=== PATIENT | female | born 1940 ===

== ENCOUNTER 2018-01-20 05:56 | Inpatient (IN) | payer MEDICARE, MEDICAID ==
[2018-01-20 06:16] VITALS: BMI 30.8
[2018-01-20] MEDS ORDERED: Propofol 10 mg/ml Inj (20 ML) ONE (07:28)
[2018-01-20] MEDS ORDERED: Rocuronium 10 mg/ml (5 ml) ONE (07:30)
[2018-01-20] MEDS ORDERED: Sodium Chloride 0.9% 60 ML IV ONE (07:40)
[2018-01-20] MEDS ORDERED: ceFAZolin IV 1 gm in Dextrose 0 GM/0 ML BAG IVPB ONE (07:41)
[2018-01-20] MEDS ORDERED: Vancomycin 1 g Inj ONE (07:41)
[2018-01-20] MEDS ORDERED: Bupivacaine Liposomal Inj 20 ml INFIL ONE (07:42)
[2018-01-20] MEDS ORDERED: Succinylcholine Chloride 20 mg/ml Syr (5 ml) IV ONE (07:45)
--- NOTE | 2018-01-20 07:48 | CP.PCM.HP ---
History of Present Illness - History of Present Illness History of Present Illness: 77 F failed conservative management, elected for a left total knee replacement. no hx, bleeding or blood clots, AL or stents Allergy to penicillin Present on Admission - Present on Admission Any Indicators Present on Admission: No History of DVT/PE: No Review of Systems - Musculoskeletal Musculoskeletal: Joint Swelling, Stiffness Past Patient History - Past Medical History & Family History Past Medical History?: Yes - Past Social History Smoking Status: Never Smoked - HEENT Hx HEENT Problems: Yes Hx Cataracts: Yes - MUSCULOSKELETAL/RHEUMATOLOGICAL Hx Musculoskeletal Disorders: Yes Hx Degenerative Joint Disease: Yes Hx Osteoarthritis: Yes - GASTROINTESTINAL Hx Gastrointestinal Disorders: Yes Hx Bowel Surgery: Yes Hx Gall Bladder Disease: Yes Hx Gastroesophageal Reflux: Yes - SURGICAL HISTORY Hx Surgeries: Yes Hx Cholecystectomy: Yes - ANESTHESIA Hx Anesthesia: Yes Hx Anesthesia Reactions: No Hx Malignant Hyperthermia: No Has any member of the family had a problem w/ anesthesia?: No Meds Allergies/Adverse Reactions: Allergies Allergy/AdvReac Type Severity Reaction Status Date / Time Penicillins Allergy RASH Verified 12/31/17 10:07 Physical Exam - Constitutional Appears: Well, No Acute Distress - Head Exam Head Exam: ATRAUMATIC, NORMAL INSPECTION, NORMOCEPHALIC - Neck Exam Neck exam: Positive for: Full Rom, Normal Inspection Additional comments: no masses - Respiratory Exam Respiratory Exam: NORMAL BREATHING PATTERN - Cardiovascular Exam Cardiovascular Exam: RRR - Extremities Exam Additional comments: calf soft nontender. NVI distally - Expanded Lower Extremities Exam Left Knee exam: tenderness - Neurological Exam Neurological exam: Alert, Normal Gait, Oriented x3 - Psychiatric Exam Psychiatric exam: Normal Affect, Normal Mood - Skin Skin Exam: Dry, Intact, Normal Color, Warm Results - Vital Signs Recent Vital Signs: Last Vital Signs Temp 97.8 F 01/20/18 06:20 Pulse 74 01/20/18 06:20 Resp 20 01/20/18 06:20 BP 153/83 H 01/20/18 06:20 Pulse Ox 98 01/20/18 06:20 Assessment & Plan (1) Osteoarthritis of left knee Status: Acute (2) Hypothyroid Status: Chronic - Assessment and Plan (Free Text) Assessment: Left total knee replacement Type and screen NPO Labs reviewed Patient medically optimized for a left total knee replacement Medical H&P and cardiac clearance on chart
[2018-01-20] MEDS ORDERED: Morphine 4 MG/ML VIAL IVP PRN (07:49)
[2018-01-20] MEDS ORDERED: Oxycodone/Acetaminophen 5/325 mg Tab PO PRN (07:49)
[2018-01-20] MEDS ORDERED: Phenylephrine 10 mg/ml Inj ONE (07:53)
[2018-01-20] MEDS ORDERED: Clindamycin 600mg/50ml NS 1,200 MG/100 ML BAG IVPB ONE (07:55)
[2018-01-20] MEDS ORDERED: Tranexamic Acid 1,000 MG in Sodium Chloride 0.9% 50 ML IV SCH (08:15)
[2018-01-20] MEDS: Bacitracin 150,000 UNIT in Sodium Chloride 0.9% Irrig 3,000 ML IR SCH ×2 (08:30→09:30)
[2018-01-20] MEDS ORDERED: ePHEDrine 50 mg/ml Inj ONE (08:35)
[2018-01-20] MEDS ORDERED: Neostigmine Methylsulfate 3mg/3ml Syringe IV ONE (09:51)
[2018-01-20] MEDS ORDERED: HYDROmorphone 0.5 mg/0.5 ml ISec IVP PRN (11:09)
--- NOTE | 2018-01-20 11:19 | PCM.SURG1 ---
Surgeon's Initial Post Op Note - Surgeon's Notes Surgeon: Kimi Umana MD Floor Broker: Debi Khanna PA-C, Adal Bruce PA-C Type of Anesthesia: General Endo Anesthesia Administered By: Dr. Carrington Pre-Operative Diagnosis: left knee osteoarthritis Operative Findings: see full note. 83 min for tourniqet at 300mmhg Post-Operative Diagnosis: same Operation Performed: Left total knee arthroplasty Specimen/Specimens Removed: none Estimated Blood Loss: EBL {In ML}: 100 Blood Products Given: N/A Drains Used: Hemovac Post-Op Condition: Fair Date of Surgery/Procedure: 01/20/18 Time of Surgery/Procedure: 08:30
--- NOTE | 2018-01-20 12:06 | RAD ---
PROCEDURE: Left Knee Radiographs. HISTORY: Pain. COMPARISON: None. FINDINGS: BONES: Bone alignment and mineralization are normal. There is no acute displaced fracture or bone destruction. There is an os ossific density medial to the medial femoral condyles which may represent ligament/ soft tissue calcification. JOINTS: Status post total cemented knee arthroplasty. No evidence of acute complications. JOINT EFFUSION: None. OTHER FINDINGS: Postsurgical changes in the periarticular soft tissues with soft tissue emphysema. A surgical drain overlies the knee joint. Anterior skin kimberley are identified. IMPRESSION: Status post total cemented knee arthroplasty, expected postsurgical changes in the periarticular soft tissues without evidence for acute complications.
[2018-01-20] MEDS ORDERED: Lactated Ringer's 1,000 ML IV ONE (13:00)
[2018-01-20] MEDS ORDERED: Bupivacaine 0.25% Inj(30mL) ONE (13:30)
--- NOTE | 2018-01-20 13:56 | PCM.ANESB7 ---
Adductor Canal Block - Adductor Canal Block Procedure Performed: Adductor Canal Block Left - Procedure Adductor Canal Block: The procedure was explained to the patient that it is for the post-operative pain management. Consent was obtained after a thorough discussion with the patient regarding the benefits and possible complications of local anesthetic adductor canal block of the femoral nerve. Standard monitors, as defined by the ASA, were applied to the patient. Time-out was held with the circulating nurse to confirm the appropriate block. After applying supplemental oxygen and administering IV Sedation as needed, the patient was placed in supine position with and the operative leg was flexed slightly at the knee and externally rotated as needed, and was kept anatomically stable. The mid-thigh of the LEFT lower extremity was exposed. The ultrasound transducer was then applied transversely along the medial aspect, about midway down the thigh and the femoral artery and vein were identified in appropriate relation with the sartorius muscle. At this time, the femoral nerve was visualized lateral to the femoral artery within the canal. After thorough identification, this area area was prepped with Chloroprep solution three times and 1 % Lidocaine was injected subcutaneously for topical anesthesia. At this point, a #22 gauge Stimuplex 4-inch needle was inserted in-plane in a [id number] orientation, and advanced toward the saphenous nerve. Advancement was performed carefully under direct ultrasound visualization. After negative aspiration, _10cc of _0.25% bupivicaine_was injected and this was followed with _10cc of _0.25% bupivicaine. Under ultrasound guidance the local anesthetics were observed spreading around the saphenous nerve. The needle was removed intact and sterile dressing was applied. The patient had stable vital signs, was conscious and in no apparent distress. The patient tolerated the adductor canal block well with stable vital signs, no complaints, no sequelae.
[2018-01-20] MEDS: Clindamycin 600mg/50ml NS 600 MG/50 ML BAG IVPB SCH (15:51)
[2018-01-20] MEDS: Sodium Chloride 0.9% 1,000 ML IV SCH ×2 (18:42→19:33)
--- NOTE | 2018-01-20 22:31 | OP ---
PROCEDURE DATE: 01/20/2018 PREOPERATIVE DIAGNOSIS: Left knee osteoarthritis. POSTOPERATIVE DIAGNOSIS: Left knee osteoarthritis. PROCEDURE: Left total knee arthroplasty. SURGEON: Alfredo Umana MD UNDERGROUND HEAVY EQUIPMENT OPERATOR: Dr. Umana assisted by , the physician shipping assistant, and Adal Bruce, the physician shipping assistant, both physician assistants were scrubbed and present throughout the entire case and assisted in patient positioning, retraction, and wound closure. TYPE OF ANESTHESIA: General. COMPLICATIONS: None. ESTIMATED BLOOD LOSS: 100 mL. INDICATIONS FOR PROCEDURE: This is a 77-year-old female who presented with complaints of long-standing left knee pain. Clinical examination is consistent with significant medial joint line tenderness to palpation and pain with axial load. Radiographic examination is consistent with advanced degenerative joint disease of the left knee. After a period of failed nonsurgical management, recommendation was for a left total knee arthroplasty. The risks, benefits, and alternatives of the procedure were discussed with the patient and informed consent was obtained. DESCRIPTION OF PROCEDURE: After surgical site was finally verified in the preoperative holding area, patient was taken to the operating room and placed supine on the operating room table. After administration of general anesthesia, patient received 900 mg of clindamycin IV. A Gonzalez catheter was inserted. Venodyne boot was placed on nonoperative extremity. Tourniquet was placed on the left thigh. Care was taken to make sure that all bony prominences and nerves were well padded and protected, and the left lower extremity was prepped and draped in the usual sterile fashion. The left lower extremity was exsanguinated and the tourniquet was inflated. Approximately 10 cm longitudinal midline incision was made. Soft tissues were dissected sharply down to the knee joint. Medial parapatellar arthrotomy was performed. Medial and lateral menisci of the anterior fat pad, ACL and PCL were all resected. Once the knee joint was adequately exposed, the step drill was used to drill into the medullary canal of distal femur. Intramedullary distal femoral cutting guide was inserted. Distal femoral resection was performed. Next, a femoral component was sized and a 4-in-1 cut block was pinned into place. Anterior and posterior cuts were performed, and the box cut was then done on the femur. Next, our attention was directed to the tibia. Extramedullary tibia guide was inserted and satisfied with our alignment. Guide was pinned into place. Tibial resection was performed, and the flexion and extension gaps were checked. After a medial soft tissue release, the patient was noted to be well balanced with full extension and flexion. At this point, tibial component was sized and the medullary canal of the proximal tibia was reamed and punched with a cruciate punch. With a trial tibia in place, a trial femur was placed, and trial bearing was inserted. The knee was taken through range of motion, was noted to have full extension and flexion and stable with varus and valgus stress. Attention was directed to the patella. The thickness of patella was measured and the patella resection was performed. The patellar button was sized and the holes for patella button were then drilled. The trial patella was inserted. The knee was taken through a range of motion, and the patella was noted to have some mild lateral tilt which was corrected by performing a lateral retinacular release. At this point, the trial components were removed, and the knee joint was pulse lavaged with antibiotic saline solution. The bony surfaces were dried, and the actual tibial, femoral, and patellar components were cemented into place. Care was taken to remove all excess cement. Once the cement was hardened, the wound was inspected for any debris and again pulse lavaged. The actual bearing was inserted and locked into place with a cross pin. The tourniquet was deflated and any obvious bleeding was cauterized. A medium Hemovac drain was inserted and arthrotomy was closed using #1 Vicryl suture, subcutaneous tissue was closed using 0-Vicryl and 2-0 Vicryl suture, and the skin was closed using kimberley. Sterile dressing was applied. The patient was awakened from the procedure and taken to the recovery room in stable condition. Alfredo Umana MD
[2018-01-21] MEDS: Clindamycin 600mg/50ml NS 600 MG/50 ML BAG IVPB SCH (00:04)
[2018-01-21 01:25] VITALS: RESP 20
[2018-01-21] MEDS: Sodium Chloride 0.9% 1,000 ML IV SCH ×2 (06:35→08:53)
[2018-01-21 07:20] LABS: MEAN CELL VOLUME 92.6 fL (81.0-99.0); RBC 3.17 Mil/uL (3.80-5.20); RED CELL DISTRIBUTION WIDTH 12.5 % (11.5-14.5)
[2018-01-21 07:32] LABS: MEAN CORPUSCULAR HEMOGLOBIN 33.8 pg (27.0-31.0); MEAN CORPUSCULAR HGB CONC 36.6 g/dL (33.0-37.0); MEAN PLATELET VOLUME 7.7 fL (7.2-11.7); WHITE BLOOD COUNT 9.7 K/uL (4.8-10.8)
[2018-01-21 07:38] LABS: HEMOGLOBIN 10.7 g/dL (11.0-16.0)
[2018-01-21 07:40] LABS: BLOOD UREA NITROGEN 11 mg/dL (7-17); CALCIUM 8.1 mg/dl (8.6-10.4); GFR AFRICAN-AMERICAN > 60; GFR NON-AFRICAN AMERICAN > 60
[2018-01-21] MEDS ORDERED: Ergocalciferol 50,000 Intl Units Cap PO SCH (10:00)
[2018-01-21] MEDS ORDERED: Enoxaparin 40 mg Syringe SC SCH (10:00)
[2018-01-21] MEDS: Pantoprazole 40 mg EC Tab PO SCH (11:05)
[2018-01-21] MEDS: Multiple Vitamins Tab PO SCH (11:05)
--- NOTE | 2018-01-21 12:15 | CP.PCM.PN ---
Subjective - Date & Time of Evaluation Date of Evaluation: 01/21/18 Time of Evaluation: 11:00 - Subjective Subjective: patient states pain is well controlled, only hurts when she is walking. Denies CP/SOB/dizziness. denies numbness/tingling Objective - Vital Signs/Intake and Output Vital Signs (last 24 hours): Temp Pulse Resp BP Pulse Ox 97.3 F L 82 20 119/75 97 01/21/18 07:40 01/21/18 07:40 01/21/18 07:40 01/21/18 07:40 01/21/18 07:40 Intake and Output: 01/21/18 01/21/18 06:59 18:59 Output Total 1430 Balance -1430 - Medications Medications: Current Medications Acetaminophen (Tylenol 325mg Tab) 650 mg PO Q6H [facility] Last Admin: 01/21/18 11:06 Dose: 650 mg Aspirin (Aspirin) 325 mg PO BID [facility] Last Admin: 01/21/18 11:05 Dose: 325 mg Calcium Carbonate (Oscal) 500 mg PO DAILY [facility] Last Admin: 01/21/18 11:05 Dose: 500 mg Docusate Sodium (Colace) 100 mg PO BID [facility] Last Admin: 01/21/18 11:05 Dose: 100 mg Ergocalciferol (Drisdol 50,000 Intl Units Cap) 1 cap PO Q7D [facility] Last Admin: 01/21/18 11:05 Dose: 1 cap Sodium Chloride (Sodium Chloride 0.9%) 1,000 mls @ 80 mls/hr IV .[id number] [facility] Last Admin: 01/21/18 08:53 Dose: Not Given Morphine Sulfate (Morphine) 2 mg IVP Q4H PRN PRN Reason: Pain, severe (8-10) Multivitamins (Hexavitamin) 1 tab PO DAILY [facility] Last Admin: 01/21/18 11:05 Dose: 1 tab Oxycodone/Acetaminophen (Percocet 5/325 Mg Tab) 1 tab PO Q4 PRN PRN Reason: Pain, moderate (4-7) Stop: 01/23/18 07:50 Pantoprazole Sodium (Protonix Ec Tab) 40 mg PO DAILY [facility] Last Admin: 01/21/18 11:05 Dose: 40 mg Pregabalin (Lyrica) 50 mg PO BID [facility] Last Admin: 01/21/18 11:18 Dose: 50 mg - Labs Labs: 01/21/18 07:13 01/21/18 07:13 - Extremities Exam Additional comments: hemovac 90 +ROM ankle/toes, sensation intact, calves soft NT neg homans +DP?PT pulses Assessment and Plan (1) Osteoarthritis of left knee Assessment & Plan: POD#1 s/p left TKR labs in am PT/OT d/c planning VTE proph with aspirin OOB d/w Dr. Umana, agrees with above Status: Acute (2) Vitamin D deficiency Assessment & Plan: supp Status: Chronic
[2018-01-22 07:33] LABS: BLOOD UREA NITROGEN 13 mg/dL (7-17); CALCIUM 8.1 mg/dl (8.6-10.4); GFR AFRICAN-AMERICAN > 60; GFR NON-AFRICAN AMERICAN > 60
--- NOTE | 2018-01-22 07:37 | CP.PCM.PN ---
Subjective - Date & Time of Evaluation Date of Evaluation: 01/22/18 Time of Evaluation: 07:28 - Subjective Subjective: Patient POD #2 s/p L TKA. Patient laying in bed comfortably, denies any significant pain. Patient afebrile L knee: dressings removed. Incision clean and intact. There is no drainage or erythema. No signs of cellulitis or infection. Mild effusion. Hemovac removed. Incision cleaned with NSS, new light dry sterile dressings applied. Calf and thigh are soft and nontender to palpation. NVI distally. POD#2 s/p L TKA Cont PT Cont DVT prophylaxis with ASA 325mg BID Will review labs for today cont d/c planning Objective - Vital Signs/Intake and Output Vital Signs (last 24 hours): Temp Pulse Resp BP Pulse Ox 98.4 F 91 H 20 110/70 96 01/22/18 04:15 01/22/18 04:15 01/22/18 04:15 01/22/18 04:15 01/22/18 04:15 Intake and Output: 01/22/18 01/22/18 06:59 18:59 Output Total 5 Balance -5 - Medications Medications: Current Medications Acetaminophen (Tylenol 325mg Tab) 650 mg PO Q6H [facility] Last Admin: 01/22/18 04:27 Dose: Not Given Aspirin (Aspirin) 325 mg PO BID [facility] Last Admin: 01/21/18 17:33 Dose: 325 mg Calcium Carbonate (Oscal) 500 mg PO DAILY [facility] Last Admin: 01/21/18 11:05 Dose: 500 mg Docusate Sodium (Colace) 100 mg PO BID [facility] Last Admin: 01/21/18 17:33 Dose: 100 mg Ergocalciferol (Drisdol 50,000 Intl Units Cap) 1 cap PO Q7D [facility] Last Admin: 01/21/18 11:05 Dose: 1 cap Sodium Chloride (Sodium Chloride 0.9%) 1,000 mls @ 80 mls/hr IV .[id number] [facility] Last Admin: 01/21/18 08:53 Dose: Not Given Morphine Sulfate (Morphine) 2 mg IVP Q4H PRN PRN Reason: Pain, severe (8-10) Multivitamins (Hexavitamin) 1 tab PO DAILY [facility] Last Admin: 01/21/18 11:05 Dose: 1 tab Oxycodone/Acetaminophen (Percocet 5/325 Mg Tab) 1 tab PO Q4 PRN PRN Reason: Pain, moderate (4-7) Stop: 01/23/18 07:50 Pantoprazole Sodium (Protonix Ec Tab) 40 mg PO DAILY [facility] Last Admin: 01/21/18 11:05 Dose: 40 mg Pregabalin (Lyrica) 50 mg PO BID [facility] Last Admin: 01/21/18 17:34 Dose: 50 mg - Labs Labs: 01/21/18 07:13 01/21/18 07:13 Assessment and Plan (1) Osteoarthritis of left knee Status: Acute (2) Hypothyroid Status: Chronic
[2018-01-22 07:39] LABS: HEMOGLOBIN 10.5 g/dL (11.0-16.0); MEAN CELL VOLUME 93.8 fL (81.0-99.0); MEAN CORPUSCULAR HEMOGLOBIN 32.4 pg (27.0-31.0); MEAN CORPUSCULAR HGB CONC 34.5 g/dL (33.0-37.0); MEAN PLATELET VOLUME 7.8 fL (7.2-11.7); RBC 3.24 Mil/uL (3.80-5.20); RED CELL DISTRIBUTION WIDTH 12.9 % (11.5-14.5); WHITE BLOOD COUNT 11.1 K/uL (4.8-10.8)
[2018-01-22] MEDS ORDERED: Potassium Chloride 20 mEq ER Tab PO ONE (10:00)
[2018-01-22] MEDS: Pantoprazole 40 mg EC Tab PO SCH (10:01)
[2018-01-22] MEDS: Multiple Vitamins Tab PO SCH (10:01)
[2018-01-23 06:34] LABS: HEMOGLOBIN 10.5 g/dL (11.0-16.0); MEAN CORPUSCULAR HEMOGLOBIN 32.4 pg (27.0-31.0); MEAN CORPUSCULAR HGB CONC 34.5 g/dL (33.0-37.0); MEAN PLATELET VOLUME 7.7 fL (7.2-11.7); RBC 3.23 Mil/uL (3.80-5.20); RED CELL DISTRIBUTION WIDTH 12.9 % (11.5-14.5)
[2018-01-23 07:13] LABS: BLOOD UREA NITROGEN 14 mg/dL (7-17); CALCIUM 8.3 mg/dl (8.6-10.4); GFR AFRICAN-AMERICAN > 60; GFR NON-AFRICAN AMERICAN > 60
[2018-01-23 08:38] VITALS: BP 111/70; PULSE 73; TEMP 96.5; O2SAT 99
[2018-01-23] MEDS: Pantoprazole 40 mg EC Tab PO SCH (09:07)
[2018-01-23] MEDS: Multiple Vitamins Tab PO SCH (09:07)
--- NOTE | 2018-01-24 13:17 | CP.PCM.DIS ---
Provider - Provider Date of Admission: 01/20/18 05:56 Attending physician: Alfredo Umana MD Primary care physician: Tariq Bradshaw MD Time Spent in preparation of Discharge (in minutes): 30 Diagnosis - Discharge Diagnosis (1) Osteoarthritis of left knee Status: Acute (2) Hypothyroid Status: Chronic (3) Vitamin D deficiency Status: Chronic Hospital Course - Lab Results Lab Results: Most Recent Lab Values WBC 10.0 K/uL (4.8-10.8) 01/23/18 06:22 RBC 3.23 Mil/uL (3.80-5.20) L 01/23/18 06:22 Hgb 10.5 g/dL (11.0-16.0) L 01/23/18 06:22 Hct 30.4 % (34.0-47.0) L 01/23/18 06:22 MCV 94.0 fL (81.0-99.0) 01/23/18 06:22 MCH 32.4 pg (27.0-31.0) H 01/23/18 06:22 MCHC 34.5 g/dL (33.0-37.0) 01/23/18 06:22 RDW 12.9 % (11.5-14.5) 01/23/18 06:22 Plt Count 234 K/uL (130-400) 01/23/18 06:22 MPV 7.7 fL (7.2-11.7) 01/23/18 06:22 Sodium 141 mmol/L (132-148) 01/23/18 06:22 Potassium 4.0 mmol/L (3.6-5.2) 01/23/18 06:22 Chloride 103 mmol/L (98-107) 01/23/18 06:22 Carbon Dioxide 25 mmol/L (22-30) 01/23/18 06:22 Anion Gap 16 (10-20) 01/23/18 06:22 BUN 14 mg/dL (7-17) 01/23/18 06:22 Creatinine 0.6 mg/dL (0.7-1.2) L 01/23/18 06:22 Est GFR ( Amer) > 60 01/23/18 06:22 Est GFR (Non-Af Amer) > 60 01/23/18 06:22 Random Glucose 121 mg/dL (65-105) H 01/23/18 06:22 Calcium 8.3 mg/dl (8.6-10.4) L 01/23/18 06:22 25-OH Vitamin D Total 16.8 NG/ML (30.0-100.0) L 01/21/18 07:13 Blood Type A POSITIVE 01/20/18 07:04 Antibody Screen Negative 01/20/18 07:04 - Hospital Course Hospital Course: 77 F with PMH: hypothyroid and with left knee osteoarthritis failed conservative management and elected for TKR. Postoperative imaging demonstrated acceptable position of prosthesis. Medical consultation was requested for post operative medical management. Patients post operative course was complicated by acute blood loss anemia, hemodynamically stable and well tolerated, no treatment needed. Patient tolerated PT/OT well. Patient received VTE prophylaxis with ASA 325mg BID and venodynes. Patient was instructed to maintain knee immobilizer at night , to remove during the day, and instructed patient to continue aggressive ROM of the knee. Patient was discharged to home with home physical therapy set up with [facility] and a visiting nurse for wound care and dressing changes. Discharge Exam - Head Exam Head Exam: ATRAUMATIC, NORMAL INSPECTION, NORMOCEPHALIC - Respiratory Exam Respiratory Exam: NORMAL BREATHING PATTERN - Cardiovascular Exam Cardiovascular Exam: RRR - Extremities Exam Additional comments: L knee: dressings dry and intact. Calf soft nontender. NVI distally - Neurological Exam Neurological exam: Alert, Oriented x3 Discharge Plan - Discharge Medications Prescriptions: Aspirin 325 mg PO BID #60 tab Calcium Carbonate [Oscal] 500 mg PO DAILY #30 tab Ergocalciferol [Drisdol 50,000 Intl Units Cap] 1 cap PO Q7D #7 cap oxyCODONE/Acetaminophen [Percocet 5/325 mg Tab] 2 tab PO Q6H PRN #30 tab PRN Reason: Pain, Moderate (4-7) Walker [Rolling Walker] 1 dev XX PRN PRN #1 dev PRN Reason: AMBULATING - Follow Up Plan Disposition: HOME/ ROUTINE Instructions: Vitamin D Deficiency, Osteoarthritis (DC), Total Knee Replacement (DC), Aspirin, Calcium Carbonate, Ergocalciferol, Oxycodone and Acetaminophen, Managing Pain After Surgery Additional Instructions: Patient will do home PT with [facility] and have visiting nurse for wound care. Patient is weight bearing as tolerated Patient will continue with DVT prophylaxis with ASA BID 325mg Will see patient in Dr. Umana office in 2 weeks Referrals: Alfredo Umana MD [Staff Provider] - Tariq Bradshaw [Primary Care Provider] - Addendum Addendum: 01/23/18 12:04 Patient will do home PT with [facility] care and have visiting nurse for wound care. Patient is weight bearing as tolerated Patient will continue with DVT prophylaxis with ASA BID 325mg Will see patient in Dr. Umana office in 2 weeks 01/23/18 12:24 01/23/18 12:28
== END 2018-01-23 16:43 | disposition home health service (06) | DRG 470 ==
LOC: C.9S 05:56 → C.6T 17:18
PROVIDERS: ADMIT Orthopaedic Surgery; ATTEND Orthopaedic Surgery
PROC: 3E0T3BZ Introduction of Anesthetic Agent into Peripheral Nerves and Plexi, Percutaneous Approach (ICD-10-PCS; 2018-01-20)
PROC: 0SRD0J9 Replacement of Left Knee Joint with Synthetic Substitute, Cemented, Open Approach (ICD-10-PCS; principal; 2018-01-20 07:30)
DX: M17.12 Unilateral primary osteoarthritis, left knee (principal); D62 Acute posthemorrhagic anemia; G89.18 Other acute postprocedural pain; E03.9 Hypothyroidism, unspecified; E55.9 Vitamin D deficiency, unspecified; K21.9 Gastro-esophageal reflux disease without esophagitis; Z88.0 Allergy status to penicillin; Z90.49 Acquired absence of other specified parts of digestive tract